=== PATIENT | male | born 1945 | race Caucasian/White ===

== ENCOUNTER → 2016-08-23 | Outpatient (CLI) | payer MEDICARE, OTHER ==
[~2016-08-23] MED LIST: ASPIRIN E.C. 8181 MG PO; COUMADIN 77.5 MG/TAB PO; FLOMAX 0.40.4 MG/CAP PO; LAMISIL250 M1 PO; LIALDA 1.2 GM1.2 GM PO; LOTRISONE CREAM15 GM TP; NORCO 325 MG-51 TAB PO; XARELTO15 MG PO; XARELTO20 MG PO; [UNRECOGNIZED DRUG - OTHER]
== END ==
LOC: COL.CARD 08-22 13:00
DX: R41.89 Other symptoms and signs involving cognitive functions and awareness (principal); Z82.0 Family history of epilepsy and other diseases of the nervous system; F41.8 Other specified anxiety disorders

== ENCOUNTER 2022-08-11 15:23 | Emergency (ER) | payer MEDICARE, OTHER ==
[~2022-08-11] VITALS: Ht 170.2 cm; Wt 63.6 kg
[2022-08-11 15:34] VITALS: TEMP 98.1
[2022-08-11 16:01] LABS: BASO # 0.1 K/mm3 (0.0-0.2); BASO % 0.9 % (0.0-2.0); EOS # 0.4 K/mm3 (0.0-0.7); EOS % 5.5 % (0.0-4.0); GRAN # 4.8 K/mm3 (1.4-6.5); GRAN % 69.8 % (42.2-75.2); HEMATOCRIT 37.8 % (42.0-52.0); HEMOGLOBIN 12.5 g/dl (13.5-18.0); LYMPH # 0.8 K/mm3 (1.2-3.4); LYMPH % 11.8 % (20.0-51.0); MEAN CELL VOLUME 102 fl (80.0-100.0); MEAN CORPUSCULAR HEMOGLOBIN 34 pg (27-31); MEAN CORPUSCULAR HGB CONC 33 g/dl (33.0-37.0); MEAN PLATELET VOLUME 11.3 fl (7.4-10.4); MONO # 0.8 K/mm3 (0.1-0.6); MONO % 11.4 % (1.7-9.3); PLATELET COUNT 229 K/mm3 (130-400); RED BLOOD COUNT 3.71 M/mm3 (4.20-5.60)
[2022-08-11 16:08] LABS: INR 1.3 (0.8-3.0); PROTHROMBIN TIME 14.6 SECONDS (9.7-12.8)
[2022-08-11 16:16] LABS: ALBUMIN 3.6 gm/dL (3.4-4.8); BILIRUBIN,TOTAL 0.8 mg/dL (0.2-1.2); CALCIUM 9.2 mg/dL (8.4-10.2); CREATININE, serum 0.92 mg/dL (0.72-1.25); POTASSIUM 4.6 mmol/L (3.5-4.5); TOTAL PROTEIN 6.6 gm/dL (6.2-8.1)
[2022-08-11 17:17] VITALS: BP 139/77; PULSE 51
[2022-08-11 17:22] LABS: COLLECTION METHOD CATHETER
[2022-08-11 17:25] LABS: PH 5.5 (5.0-8.5); URINE APPEARANCE Clear (CLEAR/HAZY); URINE COLOR Yellow (YELLOW); URINE GLUCOSE Negative (NEGATIVE); URINE KETONE TRACE (NEGATIVE); URINE PROTEIN(semi-quant) Negative (NEGATIVE)
[2022-08-11 17:26] LABS: URINE BLOOD Negative (NEGATIVE); URINE NITRATE Negative (NEGATIVE); URINE UROBILINOGEN 0.2 E.U/dL (0.2-1.0)
[2022-08-11 17:28] LABS: SQUAMOUS EPITHELIAL None Seen /hpf (0-10); URINE BACTERIA None Seen /hpf (NONE SEEN); URINE WBC 0-2 /hpf (0-2)
== END 2022-08-11 18:55 | disposition home or self-care (01) ==
LOC: COL.ER 15:23
PROVIDERS: Emergency Medicine
DX: R26.9 Unspecified abnormalities of gait and mobility (principal)

== ENCOUNTER 2022-10-09 15:01 | Outpatient (CLI) | payer MEDICARE, OTHER ==
[~2022-10-09] VITALS: Ht 172.7 cm; Wt 68.5 kg
[~2022-10-09 15:01] MED LIST changes: +ARICEPT10 MG PO; +ELIQUIS 2.5 PO; +FERROUS SU325 MG/TAB PO; +LOTENSIN20 MG PO; +PREDNISONE10 MG PO
[2022-10-09 15:31] LABS: HEMATOCRIT 41.8 % (42.0-52.0); HEMOGLOBIN 13.8 g/dl (13.5-18.0); MEAN CELL VOLUME 102 fl (80.0-100.0); MEAN CORPUSCULAR HEMOGLOBIN 34 pg (27-31); MEAN CORPUSCULAR HGB CONC 33 g/dl (33.0-37.0); PLATELET COUNT 209 K/mm3 (130-400); RED BLOOD COUNT 4.11 M/mm3 (4.20-5.60); REDCELL DISTRIBUTION WIDTH-CV 13.3 % (11.5-14.5)
[2022-10-09 15:54] VITALS: BP 114/73; PULSE 50; TEMP 98.4
[2022-10-09 16:12] LABS: BAND 6 % (0-10); LYMPHOCYTE 6 % (20.0-51.0); MYELOCYTE 1 % (0-0); NEUTROPHILS 82 % (42.0-75.2)
[2022-10-09 16:13] LABS: PLATELET ESTIMATE NORMAL (NORMAL)
== END 2022-10-09 17:07 | disposition home or self-care (01) ==
LOC: EUO 15:01
PROVIDERS: Internal Medicine Gastroenterology
DX: K51.30 Ulcerative (chronic) rectosigmoiditis without complications (principal)
CPT/HCPCS: J3380; J7050

== ENCOUNTER 2023-04-14 13:30 | Outpatient (RCR) | payer MEDICARE, OTHER | END 2023-04-15 | disposition home or self-care (01) | LOC: WSST | DX: R48.9 Unspecified symbolic dysfunctions (principal); R41.3 Other amnesia ==

== ENCOUNTER 2023-06-02 13:30 | Outpatient (RCR) | payer MEDICARE, OTHER | END 2023-06-15 | disposition home or self-care (01) | LOC: WSST | DX: R41.3 Other amnesia (principal); R48.9 Unspecified symbolic dysfunctions ==

== ENCOUNTER 2023-07-03 14:05 | Outpatient (CLI) | payer MEDICARE, OTHER ==
[2023-07-03 14:32] LABS: BASO # 0.1 K/mm3 (0.0-0.2); BASO % 1.1 % (0.0-2.0); EOS # 0.5 K/mm3 (0.0-0.7); EOS % 6.5 % (0.0-4.0); GRAN # 5.9 K/mm3 (1.4-6.5); GRAN % 70.8 % (42.2-75.2); HEMATOCRIT 41.7 % (42.0-52.0); LYMPH # 0.8 K/mm3 (1.2-3.4); LYMPH % 9.4 % (20.0-51.0); MEAN CELL VOLUME 101 fl (80.0-100.0); MEAN CORPUSCULAR HEMOGLOBIN 34 pg (27-31); MEAN CORPUSCULAR HGB CONC 34 g/dl (33.0-37.0); MONO % 11.7 % (1.7-9.3); PLATELET COUNT 175 K/mm3 (130-400); RED BLOOD COUNT 4.14 M/mm3 (4.20-5.60)
[2023-07-03] MEDS ORDERED: Vedolizumab 300 MG in NS 250 ML IV SCH (15:00)
[2023-07-03 15:43] VITALS: BP 115/61; PULSE 52; TEMP 97.8
== END 2023-07-03 16:22 ==
LOC: EUO 14:05
PROVIDERS: Internal Medicine Gastroenterology
DX: K51.30 Ulcerative (chronic) rectosigmoiditis without complications (principal)
CPT/HCPCS: J3380; J7050

== ENCOUNTER → 2023-07-16 | Outpatient (RCR) | payer MEDICARE, OTHER | END | disposition home or self-care (01) | LOC: WSST | DX: G31.84 Mild cognitive impairment of uncertain or unknown etiology (principal); R48.9 Unspecified symbolic dysfunctions ==

== ENCOUNTER 2023-07-30 15:15 | Outpatient (RCR) | payer MEDICARE, OTHER | END 2023-08-14 | disposition home or self-care (01) | LOC: WSST | DX: G31.84 Mild cognitive impairment of uncertain or unknown etiology (principal) ==

== ENCOUNTER 2023-09-11 09:32 | Outpatient (CLI) | payer MEDICARE, OTHER ==
[~2023-09-11] VITALS: Ht 172.7 cm; Wt 68.4 kg
[~2023-09-11 09:32] MED LIST changes: +BUSPAR5 MG PO
[2023-09-11 10:11] LABS: BASO # 0.1 K/mm3 (0.0-0.2); BASO % 1.3 % (0.0-2.0); EOS # 0.6 K/mm3 (0.0-0.7); EOS % 9.8 % (0.0-4.0); GRAN % 65.2 % (42.2-75.2); HEMATOCRIT 38.2 % (42.0-52.0); HEMOGLOBIN 12.7 g/dl (13.5-18.0); LYMPH # 0.9 K/mm3 (1.2-3.4); LYMPH % 14.9 % (20.0-51.0); MEAN CELL VOLUME 101 fl (80.0-100.0); MEAN CORPUSCULAR HEMOGLOBIN 34 pg (27-31); MEAN CORPUSCULAR HGB CONC 33 g/dl (33.0-37.0); MEAN PLATELET VOLUME 11.2 fl (7.4-10.4); MONO # 0.5 K/mm3 (0.1-0.6); MONO % 8.5 % (1.7-9.3); PLATELET COUNT 190 K/mm3 (130-400); RED BLOOD COUNT 3.78 M/mm3 (4.20-5.60); REDCELL DISTRIBUTION WIDTH-CV 14.1 % (11.5-14.5)
[2023-09-11 10:34] LABS: ALBUMIN 3.2 g/dL (3.4-4.8); BILIRUBIN,TOTAL 1.1 mg/dL (0.2-1.2); CALCIUM 8.8 mg/dL (8.4-10.2); CREATININE, serum 0.82 mg/dL (0.72-1.25); POTASSIUM 4.2 mEq/L (3.5-4.5); TOTAL PROTEIN 6.1 g/dl (6.2-8.1)
[2023-09-11 10:43] VITALS: BP 164/67; PULSE 46; TEMP 97.4
[2023-09-11] MEDS ORDERED: Acetaminophen 500 MG TAB PO ONE (10:45)
[2023-09-11] MEDS ORDERED: methylPREDNISolone Sod Succ 125 MG/2 ML VIAL IV ONE (10:45)
[2023-09-11] MEDS ORDERED: diphenhydrAMINE 50 MG/ML 1 ML VIAL IV ONE (10:45)
[2023-09-11] MEDS ORDERED: INFLECTRA100 MG IV (10:57)
[2023-09-11 11:14] VITALS: BP 184/71; PULSE 42
[2023-09-11] MEDS ORDERED: inFLIXimab-dyyb (Inflectra) 400 MG in NS 250 ML IV ONE (11:15)
[2023-09-11 11:30] VITALS: BP 157/59; PULSE 52
[2023-09-11 12:00] VITALS: BP 151/62; PULSE 46
[2023-09-11] MEDS ORDERED: MAGNESIUM GLYC100 MG PO (12:17)
[2023-09-11 12:30] VITALS: BP 177/66; PULSE 46
[2023-09-11 13:00] VITALS: BP 177/66; PULSE 49
--- NOTE | 2023-09-11 13:35 | NUR ---
Pt tolerated infusion without issue. IV DC'd, site wrapped with coban. Pt and exit dept together. Pt's gait steady with cane.
== END 2023-09-11 13:35 | disposition home or self-care (01) ==
LOC: EUO 09:32
PROVIDERS: Internal Medicine Gastroenterology
DX: K51.30 Ulcerative (chronic) rectosigmoiditis without complications (principal)
CPT/HCPCS: J1200; J2930; J7050; Q5103

== ENCOUNTER 2023-10-09 12:52 | Outpatient (CLI) | payer MEDICARE, OTHER ==
[~2023-10-09] VITALS: Ht 172.7 cm; Wt 68.9 kg
[~2023-10-09 12:52] MED LIST changes: +INFLECTRA100 MG IV; +MAGNESIUM GLYC100 MG PO
[2023-10-09 13:24] LABS: BASO # 0.1 K/mm3 (0.0-0.2); BASO % 0.8 % (0.0-2.0); EOS # 0.3 K/mm3 (0.0-0.7); EOS % 4.2 % (0.0-4.0); GRAN # 4.6 K/mm3 (1.4-6.5); GRAN % 64.8 % (42.2-75.2); HEMATOCRIT 43.3 % (42.0-52.0); HEMOGLOBIN 14.2 g/dl (13.5-18.0); LYMPH # 1.3 K/mm3 (1.2-3.4); LYMPH % 18.3 % (20.0-51.0); MEAN CELL VOLUME 102 fl (80.0-100.0); MEAN CORPUSCULAR HEMOGLOBIN 33 pg (27-31); MEAN CORPUSCULAR HGB CONC 33 g/dl (33.0-37.0); MEAN PLATELET VOLUME 11.5 fl (7.4-10.4); MONO # 0.8 K/mm3 (0.1-0.6); MONO % 11.6 % (1.7-9.3); PLATELET COUNT 175 K/mm3 (130-400); RED BLOOD COUNT 4.26 M/mm3 (4.20-5.60); REDCELL DISTRIBUTION WIDTH-CV 13.5 % (11.5-14.5)
--- NOTE | 2023-10-09 13:30 | NUR ---
offer of premeds refused by pt and .
[2023-10-09] MEDS ORDERED: Acetaminophen 500 MG TAB PO ONE (13:45)
[2023-10-09] MEDS ORDERED: methylPREDNISolone Sod Succ 125 MG/2 ML VIAL IV ONE (13:45)
[2023-10-09] MEDS ORDERED: diphenhydrAMINE 50 MG/ML 1 ML VIAL IV ONE (13:45)
[2023-10-09 13:52] LABS: ALBUMIN 3.7 g/dL (3.4-4.8); CALCIUM 9.2 mg/dL (8.4-10.2); CREATININE, serum 1.13 mg/dL (0.72-1.25); TOTAL PROTEIN 6.7 g/dl (6.2-8.1)
[2023-10-09] MEDS ORDERED: inFLIXimab-dyyb (Inflectra) 400 MG in NS 250 ML IV ONE (14:15)
[2023-10-09 14:41] VITALS: BP 156/76; PULSE 46
[2023-10-09 15:15] VITALS: BP 157/81; PULSE 45
[2023-10-09 15:45] VITALS: BP 159/81; PULSE 44
[2023-10-09 16:15] VITALS: BP 165/87; PULSE 45
[2023-10-09 16:30] VITALS: BP 179/91; PULSE 46
== END 2023-10-09 17:13 ==
LOC: EUO 12:52
PROVIDERS: Internal Medicine Gastroenterology
DX: K51.30 Ulcerative (chronic) rectosigmoiditis without complications (principal)
CPT/HCPCS: J7050; Q5103

== ENCOUNTER 2023-11-12 12:56 | Observation (INO) | payer MEDICARE, OTHER, BC ==
[~2023-11-12 12:56] MED LIST changes: -ELIQUIS 2.5 PO; +ELIQUIS 5MG PO
[2023-11-12] MEDS ORDERED: Iohexol 300 - 100 ML VIAL IV ONE (13:33)
[2023-11-12] MEDS ORDERED: Gadoterate 20 ML VIAL IV ONE (16:45)
[2023-12-04] MEDS ORDERED: LIPITOR 40MG TA40 MG PO (14:41)
[2023-12-04] MEDS ORDERED: PLAVIX 75MG TAB75 MG PO (14:41)
== END 2023-11-13 17:00 | disposition home or self-care (01) ==
LOC: COL.ER 12:56 → SURG 16:07
PROVIDERS: ADMIT Internal Medicine
DX: R42 Dizziness and giddiness (principal); R47.81 Slurred speech; R00.1 Bradycardia, unspecified; E04.1 Nontoxic single thyroid nodule; K51.90 Ulcerative colitis, unspecified, without complications; I10 Essential (primary) hypertension; F41.9 Anxiety disorder, unspecified; G47.33 Obstructive sleep apnea (adult) (pediatric); Z79.01 Long term (current) use of anticoagulants; Z79.02 Long term (current) use of antithrombotics/antiplatelets; Z91.014 Allergy to mammalian meats; Z86.718 Personal history of other venous thrombosis and embolism; Z95.2 Presence of prosthetic heart valve
CPT/HCPCS: A9575; Q9967

== ENCOUNTER 2024-03-11 15:15 | Outpatient (RCR) | payer MEDICARE, OTHER, BC ==
[~2024-03-11 15:15] MED LIST changes: +LIPITOR 40MG TA40 MG PO; +PLAVIX 75MG TAB75 MG PO
== END 2024-03-15 | disposition home or self-care (01) ==
LOC: WSST
DX: G31.84 Mild cognitive impairment of uncertain or unknown etiology (principal); R29.818 Other symptoms and signs involving the nervous system

== ENCOUNTER 2024-03-25 13:01 | Outpatient (CLI) | payer MEDICARE, OTHER, BC ==
[2024-03-25] VITALS (7 sets, daily range): BP systolic 107–148; BP diastolic 62–77; PULSE 48–53; TEMP 98
[2024-03-25 13:51] LABS: BASO # 0.1 K/mm3 (0.0-0.2); BASO % 0.7 % (0.0-2.0); EOS # 0.4 K/mm3 (0.0-0.7); EOS % 4.8 % (0.0-4.0); GRAN # 5.4 K/mm3 (1.4-6.5); GRAN % 66.4 % (42.2-75.2); HEMOGLOBIN 11.3 g/dl (13.5-18.0); LYMPH % 12.3 % (20.0-51.0); MEAN CELL VOLUME 99 fl (80.0-100.0); MEAN CORPUSCULAR HEMOGLOBIN 33 pg (27-31); MEAN CORPUSCULAR HGB CONC 33 g/dl (33.0-37.0); MEAN PLATELET VOLUME 10.6 fl (7.4-10.4); MONO # 1.3 K/mm3 (0.1-0.6); MONO % 15.6 % (1.7-9.3); PLATELET COUNT 237 K/mm3 (130-400); RED BLOOD COUNT 3.45 M/mm3 (4.20-5.60); REDCELL DISTRIBUTION WIDTH-CV 13.1 % (11.5-14.5)
[2024-03-25 14:17] LABS: ALBUMIN 2.8 g/dL (3.4-4.8); BILIRUBIN,TOTAL 0.7 mg/dL (0.2-1.2); CALCIUM 8.7 mg/dL (8.4-10.2); CREATININE, serum 1.02 mg/dL (0.72-1.25); POTASSIUM 4.4 mEq/L (3.5-4.5); TOTAL PROTEIN 6.2 g/dl (6.2-8.1)
[2024-03-25] MEDS ORDERED: diphenhydrAMINE 50 MG/ML 1 ML VIAL IV ONE (14:30)
[2024-03-25] MEDS ORDERED: Acetaminophen 500 MG TAB PO ONE (14:30)
[2024-03-25] MEDS ORDERED: methylPREDNISolone Sod Succ 125 MG/2 ML VIAL IV ONE (14:30)
[2024-03-25] MEDS ORDERED: inFLIXimab-dyyb (Inflectra) 400 MG in NS 250 ML IV ONE (14:30)
[2024-03-25] MEDS ORDERED: inFLIXimab-dyyb (Inflectra) 400 MG in NS 250 ML IV SCH (14:45)
--- NOTE | 2024-03-25 15:09 | NUR ---
Pt refuses offer of premedication.
--- NOTE | 2024-03-25 16:23 | NUR ---
Report to Haylee Babin.
--- NOTE | 2024-03-25 16:53 | NUR ---
Pt assisted up to toilet in room. Gait guarded, uses cane. Now sitting up in recliner for completion of infusion. at bedside.
--- NOTE | 2024-03-25 17:10 | NUR ---
Pt tolerated infusion well. IV DC'd, site wrapped with coban. He and exits dept with belongings. Pt free of complaints at discharge.
== END 2024-03-25 17:11 | disposition home or self-care (01) ==
LOC: EUO 13:01
PROVIDERS: Internal Medicine Gastroenterology
DX: K51.30 Ulcerative (chronic) rectosigmoiditis without complications (principal)
CPT/HCPCS: J7050; Q5103